=== PATIENT | female | born 1995 | race African-American/Black ===

== ENCOUNTER 2017-01-17 11:06 | Emergency (ER) | payer BC ==
[2017-01-17 11:10] VITALS: BP 131/82; PULSE 113; TEMP 98.5; BMI 34.0
[2017-01-17] MEDS ORDERED: SILVER SULFADIAZINE 1% TOP CREAM 50 GM JAR TP ONE ×2 (11:31→11:36)
--- NOTE | 2017-01-17 11:42 | PDOC ---
History of Present Illness - General Chief Complaint: Burn Stated Complaint: LT FINGER BURN, MOSQUITO BITE Time Seen by Provider: 01/17/17 11:13 - History of Present Illness Initial Comments: 01/17/17 12:01 CHIEF COMPLAINT: HISTORY OF PRESENT ILLNESS: 21 yo F presents to [facility] with R pelvic pain and burn to L pinky finger. Patient reports that she ___ but there's no blister or anything. She states her mother put neosporin on the burn after the incident. She reports that she had a UTI 2 weeks ago but was treated with antibiotics. She went to the DR, came back and now has pelvic pain to R side. She denies any recent sexual activity, is monogamous with one partner and had negative CT/GC at end of November . Returned from this week. PAST MEDICAL HISTORY: asthma FAMILY HISTORY: Denies SOCIAL HISTORY: Denies tobacco, alcohol, illicit drug use. SURGICAL HISTORY: Denies ALLERGIES: No known drug allergies REVIEW OF SYSTEMS General/Constitutional: Denies fever or chills. Denies weakness, weight change. HEENT: Denies change in vision. Denies ear pain or discharge. Denies sore throat. Cardiovascular: Denies chest pain or shortness of breath. Respiratory: Denies cough, wheezing, or hemoptysis. Gastrointestinal: Denies nausea, vomiting, diarrhea or constipation. Denies rectal bleeding. Genitourinary: Denies dysuria, frequency, or change in urination. Musculoskeletal: Denies joint or muscle swelling or pain. Denies neck or back pain. Skin and breasts: Denies rash or easy bruising. PHYSICAL EXAM General Appearance: Well-appearing, appropriately dressed. No apparent distress , no intoxication. HEENT: EOMI, PERRLA, normal ENT inspection, normal voice, TMs normal, pharynx normal. No conjunctival pallor. No photophobia, scleral icterus. Neck: Supple. Trachea midline. No tenderness, rigidity, carotid bruit, stridor , lymphadenopathy, or thyromegaly. Respiratory/Chest: Lungs CTAB. No shortness of breath, chest tenderness, respiratory distress, accessory muscle use. No crackles, rales, rhonchi, stridor , wheezing, dullness Cardiovascular: RRR. S1, S2. No JVD, murmur, bradycardia, tachycardia. Vascular Pulses: Dorsalis-Pedis (R): 2+, Dorsalis-Pedis (L): 2+ Gastrointestinal/Abdominal: Normal bowel sounds. Abdomen soft, non-distended. No tenderness or rebound tenderness. No organomegaly, pulsatile mass, guarding , hernia, hepatomegaly, splenomegaly. Lymphatic: No adenopathy, tenderness. Musculoskeletal/Extremities: Normal inspection. FROM of all extremities, normal capillary refill. Pelvis Stable. No CVA tenderness. No tenderness to extremities, pedal edema, swelling, erythema or deformity. Integumentary: Mild erythema to L pinky finger. No blister. Appropriate color , dry, warm. No cyanosis, erythema, jaundice or rash Neurologic: per assessment nurse II-XII intact. Fully oriented, alert. Appropriate mood/affect. Motor strength 5/5. No appreciable EOM palsy, facial droop or sensory deficit. 01/17/17 12:38 01/17/17 12:41 Past History - Past Medical History Allergies/Adverse Reactions: Allergies Allergy/AdvReac Type Severity Reaction Status Date / Time shellfish derived Allergy Itching Verified 01/17/17 11:11 Home Medications: Ambulatory Orders Ibuprofen [Motrin -] 600 mg PO TID #21 tablet 01/17/17 Silver Sulfadiazine [Silvadene] 1 applic TP BID #1 canister 01/17/17 Asthma: Yes - Psycho/Social/Smoking Cessation Hx Anxiety: No Suicidal Ideation: No Smoking History: Never smoked Hx Alcohol Use: No Drug/Substance Use Hx: No Substance Use Type: None *Physical Exam - Vital Signs Last Vital Signs Temp Pulse Resp BP Pulse Ox 98.5 F 113 H 20 131/82 98 01/17/17 11:06 01/17/17 11:06 01/17/17 11:06 01/17/17 11:06 01/17/17 11:06 Medical Decision Making - Medical Decision Making 01/17/17 12:41 21 yo F presents to [facility] with R pelvic pain and burn to L pinky finger. -Silvadene to R pink -UA, UC, Upreg Negative urine. TV U/S *DC/Admit/Observation/Transfer Diagnosis at time of Disposition: Ovarian cyst, Burn - Discharge Dispostion Disposition: HOME Condition at time of disposition: Stable Admit: No - Prescriptions Prescriptions: Ibuprofen [Motrin -] 600 mg PO TID #21 tablet Silver Sulfadiazine [Silvadene] 1 applic TP BID #1 canister - Referrals Referrals: Carlton Sharma MD [Primary Care Provider] - - Patient Instructions Printed Discharge Instructions: DI for Hale, DI for Ovarian Cyst Additional Instructions: Please take medications as prescribed. Follow up with your OBGYN regarding your ovarian cyst. If you experience any sudden, severe pain to one side, vaginal bleeding (more than one soaked pad an hour), or any new or worsening symptoms, please return to the ER.
[2017-01-17 11:56] LABS: URINE APPEARANCE CLEAR; URINE BILIRUBIN NEGATIVE (NEGATIVE); URINE BLOOD NEGATIVE (NEGATIVE); URINE COLOR YELLOW; URINE GLUCOSE (UA) NEGATIVE (NEGATIVE); URINE KETONE NEGATIVE (NEGATIVE); URINE LEUK ESTERASE NEGATIVE (NEGATIVE); URINE NITRITE NEGATIVE (NEGATIVE); URINE PROTEIN NEGATIVE (NEGATIVE); URINE UROBILINOGEN NEGATIVE E.U./dl (0.2-1.0)
== END 2017-01-17 13:37 | disposition home or self-care (01) ==
LOC: JERFT 11:06
PROC: 2W2KX4Z Dressing of Left Finger using Bandage (ICD-10-PCS; principal; 2017-01-17)
DX: N83.201 Unspecified ovarian cyst, right side (principal); T23.121A Burn of first degree of single right finger (nail) except thumb, initial encounter; X08.8XXA Exposure to other specified smoke, fire and flames, initial encounter; Y93.9 Activity, unspecified; Y99.8 Other external cause status
CPT/HCPCS: 76830-TC; 81003; 84703; 87086; 99281-25

== ENCOUNTER 2017-12-21 09:18 | Emergency (ER) | payer BC ==
[2017-12-21 09:31] VITALS: BP 109/75; PULSE 66; TEMP 98; BMI 37.3
--- NOTE | 2017-12-21 09:52 | PDOC ---
History of Present Illness - General Chief Complaint: Pain, Acute Stated Complaint: PAIN Time Seen by Provider: 12/21/17 09:45 History Source: Patient Exam Limitations: No Limitations - History of Present Illness Initial Comments: CHIEF COMPLAINT: 22 y/o afebrile female with PMH ovarian cysts and asthma c/o left sided pelvic pain this morning. HISTORY OF PRESENT ILLNESS: the patient admits the pain is constant but not severe enough she needs any pain medication. She states she had an IUD inserted 2 weeks ago and isn't sure if that is the cause of the pain or if she has another cyst. She denies f/c, n/v/d, Cp, SOB, back pain, hematuria, dysuria , abnormal vaginal bleeding, abnormal vaginal discharge. Vital signs on arrival are within normal limits. REVIEW OF SYSTEMS: GENERAL/CONSTITUTIONAL: No fever/chills. No weakness. No weight change. HEAD, EYES, EARS, NOSE AND THROAT: No change in vision. No ear pain or discharge. No sore throat. CARDIOVASCULAR: No chest pain or shortness of breath. RESPIRATORY: No cough, wheezing, or hemoptysis. GASTROINTESTINAL: +left pelvic pain. No nausea, vomiting, diarrhea. GENITOURINARY: No dysuria, frequency, or change in urination. MUSCULOSKELETAL: No joint or muscle swelling or pain. No neck or back pain. SKIN: No rash or easy bruising. NEUROLOGIC: No headache, vertigo, loss of consciousness, or loss of sensation. PHYSICAL EXAM: GENERAL: The patient is awake, alert, and fully oriented, in no acute distress. She is very well appearing and ambulatory. HEAD: Normal with no signs of trauma. ENT: Pupils equal, round and reactive to light, extraocular movements intact, sclera anicteric, conjunctiva clear. Neck supple. LUNGS: Clear to auscultation bilaterally. Normal excursion. No respiratory distress or use of accessory muscles. CV: RRR, S1/S2, no MRG. Cap refill < 2 sec. ABDOMEN: Soft, non-distended, non-tender even to deep palpation, no hepatomegaly or splenomegaly, no masses. No flank pain with palpation BACK: No CVA TTP b/l. VAGINAL: DEFERRED EXTREMITIES: Normal range of motion, no edema. NEUROLOGICAL: Normal speech, normal gait. CN II-XII grossly intact. SKIN: Warm, dry, normal turgor, no rashes or lesions noted. Past History - Past Medical History Allergies/Adverse Reactions: Allergies Allergy/AdvReac Type Severity Reaction Status Date / Time shellfish derived Allergy Itching Verified 12/21/17 09:29 Home Medications: Ambulatory Orders Ibuprofen [Motrin -] 600 mg PO TID #21 tablet 01/17/17 Silver Sulfadiazine [Silvadene] 1 applic TP BID #1 canister 01/17/17 Asthma: Yes COPD: No - Suicide/Smoking/Psychosocial Hx Smoking History: Never smoked Hx Alcohol Use: No Drug/Substance Use Hx: No Substance Use Type: None *Physical Exam - Vital Signs Last Vital Signs Temp Pulse Resp BP Pulse Ox 98 F 66 19 109/75 100 12/21/17 09:29 12/21/17 09:29 12/21/17 09:29 12/21/17 09:29 12/21/17 09:29 Medical Decision Making - Medical Decision Making A/P: 22 y/o afebrile female with left pelvic pain today. Plan is as follows: 1. UA/hcg 2. Ultrasound the patient is refusing pain medication at this time. hcg - negative UA negative for UTI transvaginal Ultrasound IMPRESSION: IUD in place. Partially ruptured cyst of left ovary. Follow up ultrasound recommended in 1-2 weeks. gave the patient the results. Suggested Motrin for pain if needed. instructed her to f/u with her [facility] within 2 weeks to have repeat ultrasound and return to the ER with any worsening or concerning symptoms. The patient verbalizes understanding of all instructions, has no further questions and is awaiting discharge. \ *DC/Admit/Observation/Transfer Diagnosis at time of Disposition: Pelvic pain Ovarian cyst Qualifiers: Laterality: left Qualified Code(s): N83.202 - Unspecified ovarian cyst, left side - Discharge Dispostion Disposition: HOME Condition at time of disposition: Good - Referrals Referrals: Carlton Sharma MD [Primary Care Provider] - - Patient Instructions Printed Discharge Instructions: DI for Ovarian Cyst Additional Instructions: Discharge Instructions: -Your IUD is in place -You have a partially ruptured ovarian cyst on the left side -You can take Motrin or Advil if needed for pain -Follow up with your [facility] in 1-2 weeks for repeat ultrasound -Return to the ER with any worsening or concerning symptoms. - Post Discharge Activity Forms/Work/School Notes: Back to Work, Back to School
[2017-12-21 11:03] LABS: URINE APPEARANCE CLEAR; URINE BILIRUBIN NEGATIVE (<2.0 mg/dL); URINE BLOOD NEGATIVE (NEGATIVE); URINE COLOR YELLOW; URINE GLUCOSE (UA) NEGATIVE (NEGATIVE); URINE KETONE NEGATIVE (NEGATIVE); URINE LEUK ESTERASE NEGATIVE (NEGATIVE); URINE NITRITE NEGATIVE (NEGATIVE); URINE PROTEIN NEGATIVE (NEGATIVE)
[2017-12-21 11:20] LABS: HCG,QUALITATIVE URINE NEGATIVE
== END 2017-12-21 13:36 | disposition home or self-care (01) ==
LOC: JER 09:18
DX: N83.202 Unspecified ovarian cyst, left side (principal); Z87.09 Personal history of other diseases of the respiratory system
CPT/HCPCS: 76830-TC; 81003; 84703; 87086; 99283-25

== ENCOUNTER 2018-04-19 09:00 | Emergency (ER) | payer BC ==
[2018-04-19 09:07] VITALS: BP 140/71; PULSE 84; TEMP 98.2; BMI 37.5
--- NOTE | 2018-04-19 09:25 | PDOC ---
History of Present Illness - General Chief Complaint: Vaginal Sxs Stated Complaint: VAGINAL PAIN Time Seen by Provider: 04/19/18 09:23 History Source: Patient Exam Limitations: No Limitations Past History - Travel Traveled outside of the country in the last 30 days: No Close contact w/someone who was outside of country & ill: No - Past Medical History Allergies/Adverse Reactions: Allergies Allergy/AdvReac Type Severity Reaction Status Date / Time shellfish derived Allergy Itching Verified 04/19/18 09:02 Home Medications: Ambulatory Orders Cephalexin Monohydrate [Keflex -] 500 mg PO BID #14 capsule 04/19/18 Fluconazole 150 mg PO DAILY #2 tablet 04/19/18 Asthma: Yes COPD: No - Surgical History Appendectomy: Yes - Reproductive History Cervical CA: No Dysfunctional Uterine Bleeding: No Ectopic : No Endometrial CA: No Polycystic Ovaries: Yes Tubal Ligation: No - Immunization History Immunization Up to Date: Yes - Suicide/Smoking/Psychosocial Hx Smoking History: Never smoked Hx Alcohol Use: No Drug/Substance Use Hx: No Substance Use Type: None Review of Systems - Review of Systems Able to Perform ROS?: Yes Comments:: 04/19/18 12:39 CONSTITUTIONAL: Absent: fever, chills, diaphoresis, generalized weakness, malaise, loss of appetite HEENT: Absent: rhinorrhea, nasal congestion, throat pain, throat swelling, difficulty swallowing, mouth swelling, ear pain, eye pain, visual Changes CARDIOVASCULAR: Absent: chest pain, loss of consciousness, palpitations, irregular heart rate, peripheral edema RESPIRATORY: Absent: cough, shortness of breath, dyspnea with exertion, orthopnea, wheezing, stridor, hemoptysis GASTROINTESTINAL: Absent: abdominal pain, abdominal distension, nausea, vomiting, diarrhea, constipation, melena, hematochezia GENITOURINARY: Absent: dysuria, frequency, urgency, hesitancy, hematuria, flank pain, genital pain MUSCULOSKELETAL: Absent: myalgia, arthralgia, joint swelling SKIN: Absent: rash, itching, pallor HEMATOLOGIC/IMMUNOLOGIC: Absent: easy bleeding, easy bruising, lymphadenopathy, frequent infections ENDOCRINE: Absent: unexplained weight gain, unexplained weight loss, heat intolerance, cold intolerance NEUROLOGIC: Absent: headache, focal weakness or paresthesias, dizziness, unsteady gait, seizure, mental status changes, bladder or bowel incontinence PSYCHIATRIC: Absent: anxiety, depression, suicidal or homicidal ideation, hallucinations. Is the patient limited Kazakh proficient: No *Physical Exam - Vital Signs Last Vital Signs Temp Pulse Resp BP Pulse Ox 98.2 F 84 18 140/71 100 04/19/18 09:03 04/19/18 09:03 04/19/18 09:03 04/19/18 09:03 04/19/18 09:03 - Physical Exam Comments: 04/19/18 12:40 GENERAL: Well developed, well nourished. Awake and alert. No acute distress. HEENT: Normocephalic, atraumatic. PERRLA, EOMI. No conjunctival pallor. Sclera are non- icteric. Moist mucous membranes. Oropharynx is clear. NECK: Supple. Full ROM. No JVD. Carotid pulses 2+ and symmetric, without bruits. No thyromegaly. No lymphadenopathy. CARDIOVASCULAR: Regular rate and rhythm. No murmurs, rubs, or gallops. Distal pulses are 2+ and symmetric. PULMONARY: No evidence of respiratory distress. Lungs clear to auscultation bilaterally. No wheezing, rales or rhonchi. ABDOMINAL: Soft. Non-tender. Non-distended. No rebound or guarding. No organomegaly. Normoactive bowel sounds. Pelvic: External genitalia normal without lesions.Vaginal vault is clear without blood or discharge. Cervix is long and closed. No cervical motion tenderness. Uterus is nontender and normal in size. Adnexa are nontender and without masses. MUSCULOSKELETAL Normal range of motion at all joints. No bony deformities or tenderness. No CVA tenderness. EXTREMITIES: No cyanosis. No clubbing. No edema. No calf tenderness. SKIN: Warm and dry. Normal capillary refill. No rashes. No jaundice. NEUROLOGICAL: Alert, awake, appropriate. Cranial nerves 2-12 intact. No deficits to light touch and temperature in face, upper extremities and lower extremities. No motor deficits in the in face, upper extremities and lower extremities. Normoreflexic in the upper and lower extremities. Normal speech. Toes are down- going bilaterally. Gait is normal without ataxia. PSYCHIATRIC: Cooperative. Good eye contact. Appropriate mood and affect. *DC/Admit/Observation/Transfer Diagnosis at time of Disposition: Kezia infection UTI (urinary tract infection) Qualifiers: Urinary tract infection type: acute cystitis Hematuria presence: with hematuria Qualified Code(s): N30.01 - Acute cystitis with hematuria - Discharge Dispostion Disposition: HOME Condition at time of disposition: Stable Decision to Admit order: No - Prescriptions Prescriptions: Cephalexin Monohydrate [Keflex -] 500 mg PO BID #14 capsule Fluconazole 150 mg PO DAILY #2 tablet - Referrals Referrals: Omar Olea MD [Staff Physician] - - Patient Instructions Printed Discharge Instructions: DI for Vaginal Yeast Infection, DI for Urinary Tract Infection (UTI) Additional Instructions: You have a urinary tract infection. This caused by bacteria. Please drink plenty of fluids. Take your antibiotics as prescribed. Finish the entire dose even if you feel better. You also have a yeast infection. Please take the fluconazole as prescribed. You may take Tylenol or Motrin as needed for pain. Follow the dosing instructions on the bottle. Please follow up with your primary care doctor this week. Return to the emergency department if you have fevers, chills, nausea, vomiting , back pain, or have any changes in your symptoms. - Post Discharge Activity Forms/Work/School Notes: Back to Work
[2018-04-19 10:36] LABS: HCG,QUALITATIVE URINE Negative
[2018-04-19 10:53] LABS: URINE APPEARANCE CLEAR; URINE BILIRUBIN NEGATIVE (<2.0 mg/dL); URINE COLOR YELLOW; URINE GLUCOSE (UA) NEGATIVE (NEGATIVE); URINE KETONE NEGATIVE (NEGATIVE); URINE NITRITE NEGATIVE (NEGATIVE); URINE PROTEIN NEGATIVE (NEGATIVE); URINE UROBILINOGEN NEGATIVE mg/dL (0.2-1.0)
[2018-04-19 10:55] LABS: URINE LEUK ESTERASE 2+ (NEGATIVE)
[2018-04-19 10:59] LABS: EPI CELLS RARE /HPF (FEW); URINE MUCUS MODERATE
== END 2018-04-19 11:16 | disposition home or self-care (01) ==
LOC: JERFT 09:00
DX: N30.01 Acute cystitis with hematuria (principal); B37.3 Candidiasis of vulva and vagina
CPT/HCPCS: 36415; 81003; 81015; 84703; 87070; 87086; 87186; 87205; 87491; 87591; 99281-25

== ENCOUNTER 2018-04-30 08:34 | Emergency (ER) | payer BC ==
[2018-04-30 08:43] VITALS: BMI 35.3
[2018-04-30] MEDS ORDERED: ALBUTEROL SO4 2.5/IPRATROPIUM 0.5 INH SOL 3 ML VIAL.NEB. NEB ONE ×3 (09:06→10:20)
--- NOTE | 2018-04-30 09:23 | PDOC ---
History of Present Illness - General Chief Complaint: Pain, Acute Stated Complaint: CHEST PAIN, SOB - History of Present Illness Initial Comments: 04/30/18 09:18 22 yo F PMH ovarian cysts, asthma, p/w SOB, wheezing, productive cough (white- yellow) x1wk. Pt took inhaler didnt help. Nebs helped. Denies fever, chills, abd pain, n/v/d, urinary sxs, travel, sick contacts, sore throat, body aches, joint pain. Has not required ICU admissions or intubations for asthma Last year was given steroids when she had viral cough PSH: adenoids removed 2008, appendectomy 2017 Meds: IUD, albuterol neb, albuterol INH, Flovent SH: marijuana. denies smoke etoh IV drugs Past History - Past Medical History Allergies/Adverse Reactions: Allergies Allergy/AdvReac Type Severity Reaction Status Date / Time shellfish derived Allergy Itching Verified 04/30/18 08:40 Home Medications: Ambulatory Orders Prednisone [Deltasone] 40 mg PO DAILY 5 Days #10 tablet 04/30/18 Asthma: Yes COPD: No - Surgical History Appendectomy: Yes - Reproductive History Cervical CA: No Dysfunctional Uterine Bleeding: No Ectopic : No Endometrial CA: No Polycystic Ovaries: Yes Tubal Ligation: No - Immunization History Immunization Up to Date: Yes - Suicide/Smoking/Psychosocial Hx Smoking History: Never smoked Hx Alcohol Use: No Drug/Substance Use Hx: No Substance Use Type: None Review of Systems - Review of Systems Constitutional: Yes: See HPI HEENTM: Yes: See HPI Respiratory: Yes: See HPI Cardiac (ROS): Yes: See HPI ABD/GI: Yes: See HPI : Yes: See HPI Musculoskeletal: Yes: See HPI Integumentary: Yes: See HPI Neurological: Yes: See HPI Endocrine: Yes: See HPI Hematologic/Lymphatic: Yes: See HPI *Physical Exam - Vital Signs Last Vital Signs Temp Pulse Resp BP Pulse Ox 98.8 F 90 18 114/67 98 04/30/18 08:37 04/30/18 08:37 04/30/18 08:37 04/30/18 08:37 04/30/18 08:59 - Physical Exam Comments: 04/30/18 09:24 General: Well-nourished, NAD HEENT: NCAT, MMM Neck: Supple, no lymphadenopathy Respiratory: mild wheeze cardio: RRR S1 S2 no m/r/g Abdomen: Soft, NTND +BS Extremities: radial 2+ b/l. Warm, dry, no cyanosis, edema, clubbing or calf tenderness Skin: intact. no rashes Neuro: Alert and oriented x3, nonfocal exam, grossly intact Psych: Normal mood and affect ED Treatment Course - Medications Given in the ED: ED Medications Discontinued Medications Generic Name Dose Route Start Last Admin Trade Name Gerry PRN Reason Stop Dose Admin Albuterol/Ipratropium 1 amp 04/30/18 09:06 04/30/18 09:11 Duoneb - NEB 04/30/18 09:07 1 amp ONCE ONE Administration Medical Decision Making - Medical Decision Making 04/30/18 09:25 22 yo F PMH ovarian cysts, asthma, p/w SOB, wheezing, productive cough (white- yellow) x1wk. vitals wnl. EKG was done in triage and showed NSR w/o ST-T wave changes Ddx: asthma exacerbation, viral URI, flu, PNA -Duoneb -prednisone 60 -preg test 04/30/18 09:55 Preg neg pt feeling better will prescribe prednisone Pt stable and ready for discharge *DC/Admit/Observation/Transfer Diagnosis at time of Disposition: Asthma attack Qualifiers: Asthma severity: mild Asthma persistence: intermittent Qualified Code(s): J45.21 - Mild intermittent asthma with (acute) exacerbation - Discharge Dispostion Disposition: HOME Condition at time of disposition: Stable Decision to Admit order: No - Prescriptions Prescriptions: Prednisone [Deltasone] 40 mg PO DAILY 5 Days #10 tablet - Referrals Referrals: Carlton Sharma MD [Primary Care Provider] - - Patient Instructions Printed Discharge Instructions: Asthma -- Adult, DI for Asthma -- Adult Additional Instructions: you came in for asthma exacerbation we gave you nebulizer and prednisone which helped your symptoms We will prescribe you prednisone Please take starting tomorrow on 05/01/18 prednisone 40mg (two 20mg tablets) once a day for 5 days Please continue your inhalers and nebulizers as needed Please follow up with your primary care physician within 1 week If you experience any worsening of wheezing, shortness of breath, fevers, chills , chest pain, please call 911 or come back to the ER - Post Discharge Activity
--- NOTE | 2018-04-30 09:28 | EKG ---
Test Reason : Blood Pressure : / mmHG Vent. Rate : 071 BPM Atrial Rate : 071 BPM P-R Int : 114 ms QRS Dur : 076 ms QT Int : 414 ms P-R-T Axes : 047 060 044 degrees QTc Int : 449 ms NORMAL SINUS RHYTHM NONSPECIFIC ST ABNORMALITY NO PREVIOUS ECGS AVAILABLE Confirmed by OLGA LIDIA PÉREZ MD ([id number]) on 04/30/2018 9:28:30 AM Referred By: Confirmed By:OLGA LIDIA PÉREZ MD
[2018-04-30] MEDS ORDERED: predniSONE 20 MG TABLET (UD) PO ONE (09:44)
[2018-04-30] MEDS ORDERED: predniSONE 20 MG TABLET (UD) ONE (09:50)
[2018-04-30 11:29] VITALS: BP 135/80; PULSE 87; TEMP 98.3
--- NOTE | 2018-04-30 11:34 | PDOC ---
Attending Attestation - Resident Resident Name: Shade Sloan - ED Attending Attestation I have performed the following: I have examined & evaluated the patient, The case was reviewed & discussed with the resident, I agree w/resident's findings & plan, Exceptions are as noted - HPI HPI: 04/30/18 11:31 22 yo F with h/o asthma, here with c/o coug, wheezing for few days. pt states usually tough time of year for her. no h/o icu or intubation. no f/c no n/v no leg swelling. did use albuterol at home. min relief. not currently on steroids. no other complaints. describes chest tighthness that she usually gets with asthma exacerbations, no other new chest pain. - Physicial Exam PE: 04/30/18 11:32 awake alert. lungs with bilateral wheezing. normal effort. no retractions no accessory muscle use. abd soft nt nd. ext wwp no edema. no calf tenderness. - Medical Decision Making 04/30/18 11:33 differential : asthma exacerbation bala. mild. plan nebs, steroids, ucg. pt feels improved following treatments, with nebs and steroids, will dc home ua negative. ekg performed in triage, normal. Heart Score/ECG Review #1 General ECG Interpretation: Sinus Rhythm, Normal Rate (71), Normal Intervals, No acute ischemic changes
== END 2018-04-30 11:29 | disposition home or self-care (01) ==
LOC: JER 08:34
PROC: 3E0F7GC Introduction of Other Therapeutic Substance into Respiratory Tract, Via Natural or Artificial Opening (ICD-10-PCS; principal; 2018-04-30)
DX: J45.21 Mild intermittent asthma with (acute) exacerbation (principal)
CPT/HCPCS: 84703; 93005; 93010; 99284-25; J7620

== ENCOUNTER 2018-10-24 11:31 | Emergency (ER) | payer BC ==
[2018-10-24 11:37] VITALS: BP 117/60; PULSE 72; TEMP 98.6; BMI 32.0
--- NOTE | 2018-10-24 11:47 | PDOC ---
History of Present Illness - General Chief Complaint: Pain Stated Complaint: PRESSURE LWR RT SIDE Time Seen by Provider: 10/24/18 11:44 - History of Present Illness Initial Comments: Evette Mooney is a 23yo woman with a PMH of asthma and ovarian cysts who presents reporting right sided pressure and pain since Thursday. She states that there is a feeling of squeezing pressure "in the right ovary" that worsens with urination. She knows that it is in the ovary because she had cysts before and had the same symtpoms. When she lays down, she also feels cramping pain in the same location. The pain/pressure are non-radiating. She has not tried any medication at home to help with the discomfort. Ms Mooney states that she has no other abdominal pain, no vaginal discharge, no vaginal bleeding, no change in bowel habits, no dysuria or unusual color or odor to her urine, no vomiting, and no fever/chills. Her LMP was on 09/29/18. She has an IUD in place and had no concerns for , and she states that she was recently checked for STD's and has no concern for infection. Past History - Past Medical History Allergies/Adverse Reactions: Allergies Allergy/AdvReac Type Severity Reaction Status Date / Time shellfish derived Allergy Itching Verified 10/24/18 11:38 Home Medications: Ambulatory Orders NK [No Known Home Medication] 10/24/18 Asthma: Yes COPD: No Other medical history: ovarian cysts - Surgical History Appendectomy: Yes - Reproductive History Cervical CA: No Dysfunctional Uterine Bleeding: No Ectopic : No Endometrial CA: No Polycystic Ovaries: Yes Tubal Ligation: No - Immunization History Immunization Up to Date: Yes - Suicide/Smoking/Psychosocial Hx Smoking History: Never smoked Hx Alcohol Use: No Drug/Substance Use Hx: No Substance Use Type: None Review of Systems - Review of Systems Comments:: General: No fevers, no chills, no weight or appetite change, no malaise HEENT: No changes in vision, no changes in hearing, no congestion, no sore throat CV: No chest pain, no palpitations, no LE edema Pulm: No SOB, no cough, no wheezing GI: No nausea or vomiting, no change in bowel habits, no melena : No frequency, no urgency, no dysuria Musc: No back pain, no joint swelling, no recent injury Skin: No rash, no lesions, no erythema Endo: No excessive thirst, no heat/cold intolerance Heme: No unusual bruising or bleeding, no swollen glands Neuro: No syncope, no numbness/tingling, no focal weakness Vasc: No claudication Psych: No recent change in mood, no SI or HI *Physical Exam - Vital Signs Last Vital Signs Temp Pulse Resp BP Pulse Ox 98.6 F 72 18 117/60 99 10/24/18 11:35 10/24/18 11:35 10/24/18 11:35 10/24/18 11:35 10/24/18 11:35 - Physical Exam Comments: General: Comfortable, no acute distress HEENT: PERRL, EOMI, MMM, voice normal Cards: RRR, no murmur appreciated Pulm: Comfortable on room air, clear to auscultation bilaterally Abd: Soft, nontender, nondistended : No CVA tenderness. Pelvic exam w/ normal external genitalia, no lesions, no vaginal discharge or bleeding, IUD strings visible at os, no cervical motion tenderness Ext: Atraumatic. No LE edema. ROM intact. Vasc: Extremities WWP. Skin: Normal color, no rashes or lesions Neuro: A&Ox3, CN grossly intact, normal speech, motor/sensory grossly intact and symmetric Psych: Mood appropriate to situation ED Treatment Course - LABORATORY CBC & Chemistry Diagram: 10/24/18 12:12 10/24/18 12:12 Medical Decision Making - Medical Decision Making 10/24/18 12:20 Evette Mooney is a 23yo woman with a PMH of ovarian cysts, asthma, s/p appendectomy who presents with non-radiating right pelvic squeezing pressure/ pain since Thursday without vaginal discharge, bleeding, or fever. She states that it feels the same as when she has had cysts previously. - Most likely due to known ovarian cysts. Need to also r/o ectopic or intrauterine . Less likely torsion given minimal TTP on exam. Less likely PID or cervicitis as there is no vaginal discharge, normal vaginal exam. Will r/o UTI, kidney stone. - UA, urine preg, CBC, CMP - Acetaminophen for pain - Will order transvaginal US after test results. 10/24/18 12:49 - Urine preg negative. Transvaginal US ordered - CBC, UA reviewed. No concerning abnormalities. Chemistry pending 10/24/18 13:37 - Chemistry unremarkable - US reviewed in ED. Appears to have 0.8 x 1.9cm right ovarian cyst. No free fluid or other abnormalities appreciated. Radiology read pending. - IV toradol ordered for discomfort 10/24/18 13:45 - Radiology read completed. Confirms simple R ovarian cyst. - Will d/c home with instructions for pain control and OB/gyne follow up. Discussed with Dr Flores. Katie Oliveros PGY1 *DC/Admit/Observation/Transfer Diagnosis at time of Disposition: Ovarian cyst, Pelvic pain - Discharge Dispostion Disposition: HOME Condition at time of disposition: Stable Decision to Admit order: No - Referrals Referrals: Jennifer Gaming DO [Primary Care Provider] - - Patient Instructions Printed Discharge Instructions: DI for Ovarian Cyst Additional Instructions: Discharge Instructions: You were seen in the ED for right pelvic pain. You were found to have a 0.8 x 1.9cm right ovarian cyst. There was no rupture or other abnormality. Home Care and Follow Up: - You may use over the counter medications as needed for pain at home. 650- 1000mg acetaminophen (Tylenol) or 600mg ibuprofen (Motrin or Advil) can be used every 6-8 hours. If needed for continued pain, these medications may be alternated every 3-4 hours. For example, you received ibuprofen at 9pm, so you may take acetaminophen at midnight, ibuprofen at 3am, acetaminophen at 6am. - Try using an ice pack for 20 minutes every hour or a heating pad for additional pain control. - Schedule an appointment to see your OB/gyne doctor (Dr Gaming) within the next week for follow up. - Seek immediate medical care if you have significant worsening of your symptoms , severe abdominal pain, unusual vaginal discharge or bleeding, fever to 101F, severe nausea/vomiting that prevents you from eating, or any other medical emergency. - Post Discharge Activity
[2018-10-24] MEDS ORDERED: ACETAMINOPHEN 325 MG TABLET (FP) PO ONE (12:20)
[2018-10-24] MEDS ORDERED: ACETAMINOPHEN 325 MG TABLET (FP) ONE (12:23)
[2018-10-24 12:45] LABS: PH,URINE 5.5 (5.0-8.0); URINE APPEARANCE CLEAR; URINE BILIRUBIN NEGATIVE (NEGATIVE); URINE COLOR YELLOW; URINE GLUCOSE (UA) NEGATIVE (NEGATIVE); URINE KETONE TRACE (NEGATIVE); URINE LEUK ESTERASE NEGATIVE (NEGATIVE); URINE NITRITE NEGATIVE (NEGATIVE); URINE PROTEIN NEGATIVE (NEGATIVE)
[2018-10-24 12:46] LABS: BASO % 0.9 % (0-2.0); EOS % 1.8 % (0-4.5); HEMATOCRIT 38.1 % (32.4-45.2); HEMOGLOBIN 12.7 GM/dL (10.7-15.3); LYMPH % 30.3 % (8-40); MCH 31.3 pg (25.7-33.7); MCHC 33.2 g/dl (32.0-36.0); MEAN CELL VOLUME 94.3 fl (80-96); MEAN PLT VOLUME 10.3 fl (7.5-11.1); MONO % 7.6 % (3.8-10.2); NEUT % 59.4 % (42.8-82.8); PLATELET COUNT 166 K/MM3 (134-434); RBC 4.04 M/mm3 (3.60-5.2); RDW 13.1 % (11.6-15.6); WHITE BLOOD COUNT 5.9 K/mm3 (4.0-10.0)
[2018-10-24 12:47] LABS: HCG,QUALITATIVE URINE Negative
--- NOTE | 2018-10-24 12:55 | PDOC ---
Attending Attestation - Resident Resident Name: Katie Oliveros - ED Attending Attestation I have performed the following: I have examined & evaluated the patient, The case was reviewed & discussed with the resident, I agree w/resident's findings & plan, Exceptions are as noted - HPI HPI: 10/24/18 12:55 The patient is a 23-year-old female, with a past medical history of asthma, appendectomy, and ovarian cysts, who presents to the ED with pain over her left ovary that began on Thursday10/22/18. She describes the pain as pressure-like in sensation, nonradiating, exacerbated when she urinates, and accompanied by nausea, but no vomiting. The pain is similar to the pain she experienced with ovarian cysts. Patient has an IUD. Denies any vaginal discharge or vaginal bleeding. No treatments tried for pain. The patient denies any dysuria, frequency, urgency, hesitancy, or hematuria. Denies any fevers, chills, diarrhea, or abdominal pain. Denies any chest pain or shortness of breath. Allergies: shellfish derived. Social History: None reported. Surgical History: Appendectomy PCP: Dr. Gaming - Physicial Exam PE: 10/24/18 13:09 agree with resident exam Abd: no ttp, distention, rebound or guarding : Normal ext genitalia. Normal os. No blood and discharge in vault. No CMT. No midline or L adnexal ttp. + R sided adnexal discomfort on palpation, - Medical Decision Making 10/24/18 13:11 23yo F hx appendectomy, ovarian cysts (resolved w/o intervention) presents to the ED with 3 days of dull R sided pelvic pain. Vitals wnl. Exam with R adnexal ttp. DDx includes ovarian cyst vs toa vs colitis vs ovarian torsion. Pt is very comfortable appearing, pain does not wax and wane, low likelihood torsion. Plan for labs, UPT, UA, TVUS, pain control. 10/24/18 13:53 TVUS with 2cm R dominant follicle/cyst Pain very well controlled with tylenol and toradol Pt tolerating PO, will f/u with her COMMUNICATIONS ATTENDANT within 1 week REturn precautions given I discussed the physical exam findings, ancillary test results and final diagnoses with the patient. I answered all of the patient's questions. The patient was satisfied with the care received and felt comfortable with the discharge plan and treatment plan. The patient will call their primary care physician within 24 hours to arrange follow-up and will return to the Emergency Department with any new, persistent or worsening symptoms.
[2018-10-24 12:59] LABS: ALBUMIN 3.5 g/dl (3.4-5.0); ALK PHOS 82 U/L (45-117); ANION GAP 6 MMOL/L (8-16); BILIRUBIN,TOTAL 0.3 mg/dL (0.2-1); BLOOD UREA NITROGEN 11 mg/dL (7-18); CALCIUM 8.2 mg/dL (8.5-10.1); CHLORIDE 107 mmol/L (98-107); CO2 27 mmol/L (21-32); CREATININE 0.8 mg/dL (0.55-1.3); GLUCOSE,RANDOM 85 mg/dL (74-106); POTASSIUM 4.1 mmol/L (3.5-5.1); SGOT/AST 18 U/L (15-37); SGPT/ALT 13 U/L (13-61); SODIUM 140 mmol/L (136-145); TOT PROT 6.6 g/dl (6.4-8.2)
[2018-10-24] MEDS ORDERED: KETOROLAC TROMETHAMINE 30 MG/1 ML VIAL IVPUSH ONE (13:36)
[2018-10-24] MEDS ORDERED: KETOROLAC TROMETHAMINE 30 MG/1 ML VIAL ONE (13:56)
== END 2018-10-24 14:05 | disposition home or self-care (01) ==
LOC: JER 11:31
PROC: 3E0333Z Introduction of Anti-inflammatory into Peripheral Vein, Percutaneous Approach (ICD-10-PCS; principal; 2018-10-24)
DX: N83.201 Unspecified ovarian cyst, right side (principal)
CPT/HCPCS: 36415; 76830-TC; 80053; 81003; 84703; 85025; 87086; 99282-25

== ENCOUNTER 2019-01-10 10:32 | Emergency (ER) | payer BC ==
[2019-01-10 10:58] VITALS: BP 123/60; PULSE 87; TEMP 98.6; BMI 32.0
--- NOTE | 2019-01-10 11:55 | PDOC ---
History of Present Illness - General Chief Complaint: Pain Stated Complaint: ABD PAIN Time Seen by Provider: 01/10/19 11:33 - History of Present Illness Initial Comments: 01/10/19 11:53 23-year-old female without comorbidities presents for evaluation of intermittent spotting morning nausea and lactating breasts over the last 2 weeks. She states the spotting has ceased as well as the lack patient from her breast she does have intermittent nausea. She has an IUD in place and believe she is . Past History - Past Medical History Allergies/Adverse Reactions: Allergies Allergy/AdvReac Type Severity Reaction Status Date / Time shellfish derived Allergy Itching Verified 01/10/19 10:49 Home Medications: Ambulatory Orders NK [No Known Home Medication] 10/24/18 Asthma: Yes COPD: No - Surgical History Appendectomy: Yes - Reproductive History Cervical CA: No Dysfunctional Uterine Bleeding: No Ectopic : No Endometrial CA: No Polycystic Ovaries: Yes Tubal Ligation: No - Immunization History Immunization Up to Date: Yes - Suicide/Smoking/Psychosocial Hx Smoking History: Never smoked Hx Alcohol Use: No Drug/Substance Use Hx: No Substance Use Type: None Review of Systems - Review of Systems Constitutional: No: Fever ABD/GI: Yes: Nausea *Physical Exam - Vital Signs Last Vital Signs Temp Pulse Resp BP Pulse Ox 98.6 F 87 18 123/60 100 01/10/19 10:50 01/10/19 10:50 01/10/19 10:50 01/10/19 10:50 01/10/19 10:50 - Physical Exam Comments: 01/10/19 11:55 HEAD: NC/AT EYES: Conjuntiva clear Ears: Canals and TM's normal NOSE: No d/c THROAT: Moist mucous membrances, oral pharanx clear, uvula midline NECK: Supple without adenopathy CARDIAC: S1 S2 LUNGS: CTA Full and Equal breath sounds ABDOMEN: Soft NT ND MS: Full ROM in all joints without edema NEUROLOGIC: No gross sensory or motor deficits, NVID SKIN: Normal color and temperature no lesions or rashes Medical Decision Making - Medical Decision Making 01/10/19 12:31 Negative , will have pt f/u with [facility] no emergent work up necessary at this time. Symptoms resolved over the last 2 weeks. *DC/Admit/Observation/Transfer Diagnosis at time of Disposition: Nausea - Discharge Dispostion Disposition: HOME Condition at time of disposition: Stable Decision to Admit order: No - Referrals Referrals: Carlton Sharma MD [Primary Care Provider] - Dedra Hoover MD [Staff Physician] - - Patient Instructions Additional Instructions: Your test was negative today. Return to the emergency room for worsening symptoms. Follow-up with gynecology for further evaluation and treatment options - Post Discharge Activity
== END 2019-01-10 12:50 | disposition home or self-care (01) ==
LOC: JERFT 10:32
DX: R11.0 Nausea (principal)
CPT/HCPCS: 84703; 99281-25

== ENCOUNTER 2019-05-05 14:37 | Emergency (ER) | payer BC ==
[2019-05-05 15:00] VITALS: BP 124/65; PULSE 94; TEMP 97.8; BMI 24.1
--- NOTE | 2019-05-05 15:16 | PDOC ---
Rapid Medical Evaluation Time Seen by Provider: 05/05/19 14:58 Medical Evaluation: Allergies Allergy/AdvReac Type Severity Reaction Status Date / Time shellfish derived Allergy Itching Verified 01/10/19 10:49 05/05/19 14:58 I have performed a brief in-person evaluation of this patient. The patient presents with a chief complaint of: hurt R arm "play fighting yesterday and hit arm against door" LMP 03/30, has IUD Pertinent physical exam findings: full ROM I have ordered the following: x-ray The patient will proceed to the ED for further evaluation. Discharge Disposition - Diagnosis Arm pain - Referrals - Patient Instructions - Post Discharge Activity
--- NOTE | 2019-05-05 15:31 | PDOC ---
History of Present Illness - General Chief Complaint: Pain, Acute Stated Complaint: RT ARM PAIN/INJURY Time Seen by Provider: 05/05/19 14:58 History Source: Patient Exam Limitations: No Limitations - History of Present Illness Initial Comments: 05/05/19 15:24 HISTORY OF PRESENT ILLNESS: This is a 23-year-old otherwise healthy woman who presents emergency department for evaluation of right upper arm pain status post direct trauma to the right upper arm. Patient reports she was pushing and shoving with a mart friend when she got pushed striking a metal door that was open on the thin side of the open door. Patient reports pain is increased over the day but is been able to move her arm since injury. Patient also reports to suprapubic pressure with voiding. No recent travel or sick contacts. PAST MEDICAL HISTORY: Denies past medical history SURGICAL HISTORY: Denies ALLERGIES: Shellfish REVIEW OF SYSTEMS General/Constitutional: Denies fever or chills. Denies weakness, weight change. HEENT: Denies change in vision. Denies ear pain or discharge. Denies sore throat. Cardiovascular: Denies chest pain or shortness of breath. Respiratory: Denies cough, wheezing, or hemoptysis. Gastrointestinal: Denies nausea, vomiting, diarrhea or constipation. Denies rectal bleeding. Genitourinary: Denies dysuria, frequency, or change in urination. Musculoskeletal: See HPI Skin and breasts: Denies rash or easy bruising. Neurologic: Denies headache, vertigo, loss of consciousness, or loss of sensation. Psychiatric: Denies depression or anxiety. Endocrine: Denies increased thirst. Denies abnormal weight change. Hematologic/Lymphatic: Denies anemia, easy bleeding, or history of blood clots. Allergic/Immunologic: Denies hives or skin allergy. Denies latex allergy. PHYSICAL EXAM General Appearance: Well-appearing, appropriately dressed. No apparent distress , no intoxication. Respiratory/Chest: Lungs CTAB. No shortness of breath, chest tenderness, respiratory distress, accessory muscle use. No crackles, rales, rhonchi, stridor , wheezing, dullness Cardiovascular: RRR. S1, S2. No JVD, murmur, bradycardia, tachycardia. Vascular Pulses: Dorsalis-Pedis (R): 2+, Dorsalis-Pedis (L): 2+ Gastrointestinal/Abdominal: Normal bowel sounds. Abdomen soft, non-distended. No tenderness or rebound tenderness. No organomegaly, pulsatile mass, guarding, hernia, hepatomegaly, splenomegaly. Lymphatic: No adenopathy, tenderness. Musculoskeletal/Extremities: Normal inspection. FROM of all extremities, normal capillary refill. Pelvis Stable. No CVA tenderness. No tenderness to extremities, pedal edema, swelling, erythema or deformity. Tender to palpation over the right triceps muscle. Integumentary: Appropriate color, dry, warm. No cyanosis, erythema, jaundice or rash Neurologic: mechanic general operational test II-XII intact. Fully oriented, alert. Appropriate mood/affect. Motor strength 5/5. No appreciable EOM palsy, facial droop or sensory deficit. Past History - Past Medical History Allergies/Adverse Reactions: Allergies Allergy/AdvReac Type Severity Reaction Status Date / Time shellfish derived Allergy Itching Verified 01/10/19 10:49 Home Medications: Ambulatory Orders NK [No Known Home Medication] 10/24/18 Asthma: Yes COPD: No - Surgical History Appendectomy: Yes - Reproductive History Cervical CA: No Dysfunctional Uterine Bleeding: No Ectopic : No Endometrial CA: No Polycystic Ovaries: Yes Tubal Ligation: No - Immunization History Immunization Up to Date: Yes - Psycho Social/Smoking Cessation Hx Smoking History: Never smoked Have you smoked in the past 12 months: No Information on smoking cessation initiated: No Hx Alcohol Use: No Drug/Substance Use Hx: No Substance Use Type: None *Physical Exam - Vital Signs Last Vital Signs Temp Pulse Resp BP Pulse Ox 97.8 F 94 H 18 124/65 100 05/05/19 14:58 05/05/19 14:58 05/05/19 14:58 05/05/19 14:58 05/05/19 14:58 Medical Decision Making - Medical Decision Making 05/05/19 15:29 A/P: 23-year-old woman with right arm pain and suprapubic tenderness X-ray per E as read by me: No acute fractures noted. Bone matrix undisturbed. urinalysis, urine , urine culture Reassess 05/05/19 16:36 Urinalysis is not suggestive of infection. I will discharge patient home to follow-up with her primary doctor for continued evaluation. I discussed the physical exam findings, ancillary test results and final diagnoses with the patient. I answered all of the patient's questions. The patient was satisfied with the care received and felt comfortable with the discharge plan and treatment plan. The patient will call their primary care physician within 24 hours to arrange follow-up and will return to the Emergency Department with any new, persistent or worsening symptoms. Discharge - Discharge Information Problems reviewed: Yes Clinical Impression/Diagnosis: Arm pain Qualifiers: Laterality: right Qualified Code(s): M79.601 - Pain in right arm Condition: Stable Disposition: HOME - Admission No - Follow up/Referral - Patient Discharge Instructions Additional Instructions: Take Tylenol or Motrin as needed for pain. Follow manufacturers instructions for appropriate dosage. Apply ice for 20 minutes and removed for at least 20 minutes before reapplying the ice. Return to emergency department for discoloration of the fingers, numbness or tingling to the fingers, worsening pain, or any other concerns. Thank you very much for choosing us to provide your emergent healthcare needs. - Post Discharge Activity
[2019-05-05 16:31] LABS: URINE APPEARANCE CLEAR; URINE BILIRUBIN NEGATIVE (NEGATIVE); URINE COLOR YELLOW; URINE GLUCOSE (UA) NEGATIVE (NEGATIVE); URINE KETONE TRACE (NEGATIVE); URINE LEUK ESTERASE NEGATIVE (NEGATIVE); URINE NITRITE NEGATIVE (NEGATIVE); URINE PROTEIN NEGATIVE (NEGATIVE)
== END 2019-05-05 16:39 | disposition home or self-care (01) ==
LOC: JERFT 14:37
DX: S49.81XA Other specified injuries of right shoulder and upper arm, initial encounter (principal); M79.601 Pain in right arm; W22.8XXA Striking against or struck by other objects, initial encounter; Y93.83 Activity, rough housing and horseplay; Y92.038 Other place in apartment as the place of occurrence of the external cause; Y99.8 Other external cause status; J45.909 Unspecified asthma, uncomplicated; Z91.013 Allergy to seafood
CPT/HCPCS: 73060-TC-RT-FY; 81003; 84703; 87086; 99282-25

== ENCOUNTER 2019-08-16 17:09 | Emergency (ER) | payer BC ==
[2019-08-16 17:45] VITALS: BP 113/59; PULSE 116; TEMP 97.8; BMI 25.7
--- NOTE | 2019-08-16 17:46 | PDOC ---
Rapid Medical Evaluation Chief Complaint: Cold Symptoms Time Seen by Provider: 08/16/19 17:44 Medical Evaluation: Allergies Allergy/AdvReac Type Severity Reaction Status Date / Time shellfish derived Allergy Itching Verified 08/16/19 17:42 Vital Signs Temp Pulse Resp BP Pulse Ox 97.8 F 116 H 16 113/59 L 99 08/16/19 17:42 08/16/19 17:42 08/16/19 17:42 08/16/19 17:42 08/16/19 17:42 08/16/19 17:45 I have performed a brief in-person evaluation of this patient. The patient presents with a chief complaint of: cough and congestion with midsternal CP from cough since today. BF tested positive for flu and she wants to make sure she doesnt have the flu Pertinent physical exam findings: afebrile I have ordered the following:deferred The patient will proceed to the ED for further evaluation. Discharge Disposition - Diagnosis URI (upper respiratory infection) Qualifiers: URI type: unspecified viral URI Qualified Code(s): J06.9 - Acute upper respiratory infection, unspecified - Discharge Dispostion Condition at time of disposition: Stable - Referrals - Patient Instructions - Post Discharge Activity
--- NOTE | 2019-08-16 19:06 | PDOC ---
History of Present Illness - General Chief Complaint: Cold Symptoms Stated Complaint: CHEST PAIN/SOB Time Seen by Provider: 08/16/19 17:44 - History of Present Illness Initial Comments: 08/16/19 19:05 24-year-old female with flu symptoms and a positive sick flu contacts at home. Past medical history of asthma Past History - Past Medical History Allergies/Adverse Reactions: Allergies Allergy/AdvReac Type Severity Reaction Status Date / Time shellfish derived Allergy Itching Verified 08/16/19 17:42 Home Medications: Ambulatory Orders Oseltamivir Phosphate [Tamiflu] 75 mg PO BID #10 capsule 08/16/19 Asthma: Yes COPD: No - Surgical History Appendectomy: Yes - Reproductive History Cervical CA: No Dysfunctional Uterine Bleeding: No Ectopic : No Endometrial CA: No Polycystic Ovaries: Yes Tubal Ligation: No - Immunization History Immunization Up to Date: Yes - Psycho Social/Smoking Cessation Hx Smoking History: Never smoked Have you smoked in the past 12 months: No Hx Alcohol Use: No Drug/Substance Use Hx: No Substance Use Type: None Review of Systems - Review of Systems Constitutional: Yes: Fever HEENTM: Yes: Nose Congestion Respiratory: Yes: Cough *Physical Exam - Vital Signs Last Vital Signs Temp Pulse Resp BP Pulse Ox 97.8 F 116 H 16 113/59 L 99 08/16/19 17:42 08/16/19 17:42 08/16/19 17:42 08/16/19 17:42 08/16/19 17:42 - Physical Exam 08/16/19 19:05 GENERAL: The patient is awake, alert, and fully oriented, in no acute distress. HEAD: Normal with no signs of trauma. EYES: sclera anicteric, conjunctiva clear. ENT: Ears normal tympanic membranes normal oropharynx clear uvula midline NECK: Normal range of motion LUNGS: Breath sounds equal, clear to auscultation bilaterally. No wheezes, and no crackles. HEART: S1 and S2 without murmur, rub or gallop. ABDOMEN: Soft, nontender, normoactive bowel sounds. No guarding, no rebound. No masses. EXTREMITIES: Normal range of motion, no edema. No clubbing or cyanosis. No cords, erythema, or tenderness. NEUROLOGICAL: Cranial nerves II through XII grossly intact. PSYCH: Normal mood, normal affect. SKIN: Warm, Dry, normal turgor, no rashes or lesions noted. Medical Decision Making - Medical Decision Making 08/16/19 19:05 We will treat for flu based on positive sick flu contact at home and symptoms starting today Discharge - Discharge Information Problems reviewed: Yes Clinical Impression/Diagnosis: URI (upper respiratory infection) Qualifiers: URI type: unspecified viral URI Qualified Code(s): J06.9 - Acute upper respiratory infection, unspecified Condition: Stable Disposition: HOME - Admission No - Additional Discharge Information Prescriptions: Oseltamivir Phosphate [Tamiflu] 75 mg PO BID #10 capsule - Follow up/Referral Referrals: Enriqueta Perez MD [Staff Physician] - - Patient Discharge Instructions Additional Instructions: Tylenol Motrin as directed for fever and body aches. Return to the emergency room for worsening symptoms and without fail follow-up with your primary care physician in 1 to 2 days for further evaluation and treatment options. Please take the Tamiflu as directed. - Post Discharge Activity
== END 2019-08-16 19:07 | disposition home or self-care (01) ==
LOC: JERFT 17:09
DX: J06.9 Acute upper respiratory infection, unspecified (principal); Z87.09 Personal history of other diseases of the respiratory system; Z91.013 Allergy to seafood
CPT/HCPCS: 99281-25

== ENCOUNTER 2019-08-22 13:05 | Emergency (ER) | payer BC ==
[2019-08-22 13:18] VITALS: BP 117/62; PULSE 68; BMI 36.1
[2019-08-22] MEDS ORDERED: DEXAMETHASONE LIQUID 0.5 MG/5 ML PO ONE (14:49)
[2019-08-22] MEDS ORDERED: ALBUTEROL SO4 2.5/IPRATROPIUM 0.5 INH SOL 3 ML VIAL.NEB. NEB ONE (14:56)
[2019-08-22] MEDS ORDERED: ALBUTEROL SO4 2.5/IPRATROPIUM 0.5 INH SOL 3 ML VIAL.NEB. NEB SCH (15:00)
[2019-08-22] MEDS ORDERED: DEXAMETHASONE SOD PHOSPHATE 10 MG/1 ML VIAL ONE (15:01)
--- NOTE | 2019-08-22 15:16 | PDOC ---
History of Present Illness - General Chief Complaint: Cold Symptoms Stated Complaint: CONGESTED/SOB Time Seen by Provider: 08/22/19 14:19 - History of Present Illness Initial Comments: 08/22/19 15:14 24-year-old female with a past medical history of asthma presents for flulike symptoms x4 days Past History - Past Medical History Allergies/Adverse Reactions: Allergies Allergy/AdvReac Type Severity Reaction Status Date / Time shellfish derived Allergy Itching Verified 08/22/19 13:18 Home Medications: Ambulatory Orders Oseltamivir Phosphate [Tamiflu] 75 mg PO BID #10 capsule 08/16/19 Azithromycin [Zithromax -] 250 mg PO UTDICT #6 tab 08/22/19 Guaifenesin Dm [Mucinex Dm -] 1 tab PO BID #60 tab.er.12h 08/22/19 Asthma: Yes COPD: No - Surgical History Appendectomy: Yes - Reproductive History Cervical CA: No Dysfunctional Uterine Bleeding: No Ectopic : No Endometrial CA: No Polycystic Ovaries: Yes Tubal Ligation: No - Immunization History Immunization Up to Date: Yes - Psycho Social/Smoking Cessation Hx Smoking History: Never smoked Have you smoked in the past 12 months: No Information on smoking cessation initiated: No Hx Alcohol Use: No Drug/Substance Use Hx: No Substance Use Type: None Review of Systems - Review of Systems Constitutional: No: Fever HEENTM: Yes: Nose Congestion Respiratory: Yes: Cough *Physical Exam - Vital Signs Last Vital Signs Temp Pulse Resp BP Pulse Ox 68 17 117/62 100 08/22/19 13:16 08/22/19 13:16 08/22/19 13:16 08/22/19 13:16 - Physical Exam 08/22/19 15:14 GENERAL: The patient is awake, alert, and fully oriented, in no acute distress. HEAD: Normal with no signs of trauma. EYES: sclera anicteric, conjunctiva clear. ENT: Ears normal tympanic membranes normal oropharynx clear uvula midline NECK: Normal range of motion LUNGS: Right basilar rhonchi and wheezing. HEART: S1 and S2 without murmur, rub or gallop. ABDOMEN: Soft, nontender, normoactive bowel sounds. No guarding, no rebound. No masses. EXTREMITIES: Normal range of motion, no edema. No clubbing or cyanosis. No cords, erythema, or tenderness. NEUROLOGICAL: Cranial nerves II through XII grossly intact. PSYCH: Normal mood, normal affect. SKIN: Warm, Dry, normal turgor, no rashes or lesions noted. ED Treatment Course - Medications Given in the ED: ED Medications Discontinued Medications Generic Name Dose Route Start Last Admin Trade Name Gerry PRN Reason Stop Dose Admin Dexamethasone 10 mg 08/22/19 14:49 08/22/19 15:03 Decadron Liquid - PO 08/22/19 14:50 10 mg ONCE ONE Administration Medical Decision Making - Medical Decision Making 08/22/19 15:15 Wheezing resolved after 1 treatment and Decadron will treat for bronchitis with Zithromax. Discharge - Discharge Information Problems reviewed: Yes Clinical Impression/Diagnosis: Asthmatic bronchitis Condition: Stable Disposition: HOME - Admission No - Follow up/Referral Referrals: Carlton Sharma MD [Primary Care Provider] - - Patient Discharge Instructions Additional Instructions: Please take the Zithromax and Mucinex as directed. Return to the emergency room for worsening symptoms. Tylenol and Motrin for fever and body aches should you require it. Without fail follow-up with your primary care physician in 2 to 3 days for further evaluation and treatment options. - Post Discharge Activity
== END 2019-08-22 15:35 | disposition home or self-care (01) ==
LOC: JERFT 13:05
PROC: 3E0F7GC Introduction of Other Therapeutic Substance into Respiratory Tract, Via Natural or Artificial Opening (ICD-10-PCS; principal; 2019-08-22)
DX: J45.998 Other asthma (principal)
CPT/HCPCS: 99281-25

== ENCOUNTER 2020-06-09 13:42 | Emergency (ER) | payer BC ==
[2020-06-09 13:52] VITALS: BMI 35.7
[2020-06-09] MEDS ORDERED: MAG HYDROX/AL HYDROX/SIMETH -MYLANTA- ORAL SUSPENSION PO ONE (14:17)
[2020-06-09] MEDS ORDERED: FAMOTIDINE 20 MG/50 ML IVPB 20 MG in PREMIX 50 IVPB ONE (14:17)
[2020-06-09] MEDS ORDERED: ONDANSETRON 4 MG/2 ML VIAL IVPB ONE (14:17)
[2020-06-09] MEDS ORDERED: SODIUM CHLORIDE 1,000 ML IV ONE ×2 (14:17→15:23)
[2020-06-09] MEDS ORDERED: MAG HYDROX/AL HYDROX/SIMETH 30 ML UNIT-DOSE CUP ONE (14:21)
[2020-06-09] MEDS ORDERED: FAMOTIDINE 20 MG/50 ML IVPB 20 MG/50 ML MG IVPB ONE (14:22)
[2020-06-09 14:41] LABS: HEMATOCRIT 43.3 % (32.4-45.2); HEMOGLOBIN 14.4 GM/dL (10.7-15.3); LYMPH % 14.6 % (8-40); MCH 31.3 pg (25.7-33.7); MCHC 33.3 g/dl (32.0-36.0); MEAN CELL VOLUME 93.9 fl (80-96); MEAN PLT VOLUME 10.1 fl (7.5-11.1); NEUT % 79.6 % (42.8-82.8); PLATELET COUNT 197 K/MM3 (134-434); RBC 4.61 M/mm3 (3.60-5.2); RDW 12.6 % (11.6-15.6); WHITE BLOOD COUNT 6.9 K/mm3 (4.0-10.0)
[2020-06-09 14:42] LABS: EOS % 0.1 % (0-4.5); MONO % 4.7 % (3.8-10.2)
[2020-06-09 14:47] LABS: HCG,QUALITATIVE URINE Negative
[2020-06-09 14:48] LABS: EPI CELLS 25 /uL (0-25.1); HYALINE CASTS 3 /uL (0-3.1); PH,URINE 5.5 (5.0-8.0); URINE APPEARANCE CLEAR; URINE BACTERIA 1609 /uL (0-1359); URINE BILIRUBIN NEGATIVE (NEGATIVE); URINE COLOR YELLOW; URINE GLUCOSE (UA) NEGATIVE (NEGATIVE); URINE KETONE 4+ (NEGATIVE); URINE LEUK ESTERASE NEGATIVE (NEGATIVE); URINE NITRITE NEGATIVE (NEGATIVE); URINE PROTEIN TRACE (NEGATIVE); URINE WBC 15 /uL (0-25.8)
[2020-06-09 15:08] LABS: POTASSIUM 3.6 mmol/L (3.5-5.1)
[2020-06-09 15:10] LABS: BLOOD UREA NITROGEN 14.5 mg/dL (7-18); CALCIUM 9.5 mg/dL (8.5-10.1)
[2020-06-09 15:11] LABS: ALBUMIN 4.2 g/dl (3.4-5.0)
[2020-06-09 15:15] LABS: BILIRUBIN,TOTAL 0.8 mg/dL (0.2-1); TOT PROT 7.6 g/dl (6.4-8.2)
[2020-06-09 15:30] LABS: URINE RBC 20.2 /uL (0-23.9)
[2020-06-09] MEDS ORDERED: PROCHLORPERAZINE INJECTION 10 MG/2 ML VIAL IVPB ONE (15:48)
[2020-06-09] MEDS ORDERED: PROCHLORPERAZINE INJECTION 10 MG/2 ML VIAL ONE (15:52)
[2020-06-09 16:57] VITALS: BP 110/68; PULSE 72; TEMP 98.2
== END 2020-06-09 16:57 | disposition home or self-care (01) ==
LOC: JER 13:42
PROC: 3E033NZ Introduction of Analgesics, Hypnotics, Sedatives into Peripheral Vein, Percutaneous Approach (ICD-10-PCS; principal; 2020-06-09)
PROC: 3E033GC Introduction of Other Therapeutic Substance into Peripheral Vein, Percutaneous Approach (ICD-10-PCS; 2020-06-09)
PROC: 3E0337Z Introduction of Electrolytic and Water Balance Substance into Peripheral Vein, Percutaneous Approach (ICD-10-PCS; 2020-06-09)
DX: R11.2 Nausea with vomiting, unspecified (principal)
CPT/HCPCS: 36415; 80053; 81003; 83690; 84703; 85025; 93005; 93010; 99285-25

== ENCOUNTER 2020-07-01 18:21 | Emergency (ER) | payer BC ==
[2020-07-01 18:29] VITALS: BP 123/70; PULSE 90; TEMP 97.5; BMI 35.3
[2020-07-01] MEDS ORDERED: SODIUM CHLORIDE 0.9% 500 ML INFUS.BAG IV ONE (19:13)
[2020-07-01] MEDS ORDERED: ACETAMINOPHEN 500 MG TABLET (FP) PO ONE (19:13)
[2020-07-01] MEDS ORDERED: ONDANSETRON 4 MG/2 ML VIAL IVPUSH ONE (19:13)
[2020-07-01] MEDS ORDERED: ONDANSETRON 4 MG/2 ML VIAL ONE (20:33)
[2020-07-01] MEDS ORDERED: ACETAMINOPHEN 325 MG TABLET (FP) ONE (20:33)
[2020-07-01 20:45] LABS: BASO % 1.1 % (0-2.0); EOS % 0.3 % (0-4.5); HEMOGLOBIN 12.8 GM/dL (10.7-15.3); LYMPH % 36.6 % (8-40); MCH 30.8 pg (25.7-33.7); MCHC 32.7 g/dl (32.0-36.0); MEAN CELL VOLUME 94.2 fl (80-96); MEAN PLT VOLUME 9.8 fl (7.5-11.1); MONO % 9.1 % (3.8-10.2); NEUT % 52.9 % (42.8-82.8); PLATELET COUNT 173 K/MM3 (134-434); RBC 4.14 M/mm3 (3.60-5.2); RDW 12.8 % (11.6-15.6); WHITE BLOOD COUNT 6.6 K/mm3 (4.0-10.0)
[2020-07-01 20:48] LABS: EPI CELLS >36 /uL (0-25.1); HYALINE CASTS 7 /uL (0-3.1); PH,URINE 5.5 (5.0-8.0); URINE APPEARANCE CLEAR; URINE BACTERIA 664 /uL (0-1359); URINE BILIRUBIN NEGATIVE (NEGATIVE); URINE COLOR YELLOW; URINE GLUCOSE (UA) NEGATIVE (NEGATIVE); URINE KETONE 2+ (NEGATIVE); URINE LEUK ESTERASE TRACE (NEGATIVE); URINE NITRITE NEGATIVE (NEGATIVE); URINE PROTEIN TRACE (NEGATIVE); URINE RBC 11 /uL (0-23.9); URINE WBC 27 /uL (0-25.8)
[2020-07-01 20:56] LABS: HCG,QUALITATIVE URINE Negative
[2020-07-01 21:05] LABS: POTASSIUM 3.5 mmol/L (3.5-5.1)
[2020-07-01 21:07] LABS: ALBUMIN 3.7 g/dl (3.4-5.0); BLOOD UREA NITROGEN 11.1 mg/dL (7-18); CALCIUM 8.5 mg/dL (8.5-10.1)
[2020-07-01 21:10] LABS: CREATININE 0.9 mg/dL (0.55-1.3)
[2020-07-01 21:12] LABS: BILIRUBIN,TOTAL 0.5 mg/dL (0.2-1); TOT PROT 6.7 g/dl (6.4-8.2)
[2020-07-01] MEDS ORDERED: CEPHALEXIN MONOHYDRATE 500 MG CAPSULE (UD) PO ONE (21:30)
[2020-07-01] MEDS ORDERED: CEPHALEXIN MONOHYDRATE 500 MG CAPSULE (UD) ONE (21:41)
== END 2020-07-01 21:45 | disposition home or self-care (01) ==
LOC: JER 18:21
PROC: 3E033GC Introduction of Other Therapeutic Substance into Peripheral Vein, Percutaneous Approach (ICD-10-PCS; principal; 2020-07-01)
DX: N30.01 Acute cystitis with hematuria (principal)
CPT/HCPCS: 36415; 76830-TC; 80053; 81003; 84703; 85025; 87086; 99284-25

== ENCOUNTER 2020-09-02 20:05 | Emergency (ER) | payer BC ==
[2020-09-02 20:14] VITALS: BP 111/67; PULSE 94; TEMP 98.8; BMI 33.2
[2020-09-02 21:27] LABS: EPI CELLS >36 /uL (0-25.1); HYALINE CASTS 6 /uL (0-3.1); PH,URINE 5.5 (5.0-8.0); URINE APPEARANCE CLOUDY; URINE BACTERIA 896 /uL (0-1359); URINE BILIRUBIN NEGATIVE (NEGATIVE); URINE COLOR YELLOW; URINE GLUCOSE (UA) NEGATIVE (NEGATIVE); URINE KETONE TRACE (NEGATIVE); URINE LEUK ESTERASE 1+ (NEGATIVE); URINE NITRITE NEGATIVE (NEGATIVE); URINE PROTEIN 1+ (NEGATIVE); URINE RBC 173 /uL (0-23.9); URINE WBC 139 /uL (0-25.8)
[2020-09-02] MEDS ORDERED: FLUCONAZOLE 150 MG TABLET PO ONE ×2 (21:35→22:04)
== END 2020-09-02 22:39 | disposition home or self-care (01) ==
LOC: JER 20:05
DX: B37.3 Candidiasis of vulva and vagina (principal)
CPT/HCPCS: 36415; 81003; 84703; 87086; 87186; 87491; 87591; 87661; 99284-25

== ENCOUNTER 2021-01-03 16:43 | Emergency (ER) | payer BC ==
[2021-01-03 17:03] VITALS: BP 114/79; PULSE 104; TEMP 98.8; BMI 37.5
[2021-01-03 19:11] LABS: BASO % 0.7 % (0-2.0); EOS % 0.3 % (0-4.5); HEMATOCRIT 39.4 % (32.4-45.2); HEMOGLOBIN 13.2 GM/dL (10.7-15.3); LYMPH % 15.5 % (8-40); MCH 31.2 pg (25.7-33.7); MCHC 33.5 g/dl (32.0-36.0); MEAN CELL VOLUME 93.1 fl (80-96); MEAN PLT VOLUME 9.7 fl (7.5-11.1); MONO % 6.4 % (3.8-10.2); NEUT % 77.1 % (42.8-82.8); PLATELET COUNT 163 10^3/uL (134-434); RBC 4.23 M/mm3 (3.60-5.2); RDW 12.8 % (11.6-15.6)
[2021-01-03 19:32] LABS: CALCIUM 9.3 mg/dL (8.5-10.1)
[2021-01-03 19:33] LABS: ALBUMIN 3.8 g/dl (3.4-5.0); BLOOD UREA NITROGEN 10.4 mg/dL (7-18)
[2021-01-03 19:36] LABS: CREATININE 0.8 mg/dL (0.55-1.3)
[2021-01-03 19:37] LABS: BILIRUBIN,TOTAL 0.9 mg/dL (0.2-1); TOT PROT 7.3 g/dl (6.4-8.2)
[2021-01-03 19:58] LABS: EPI CELLS 22 /uL (0-25.1); HCG,QUALITATIVE URINE Negative; HYALINE CASTS 6 /uL (0-3.1); PH,URINE 5.5 (5.0-8.0); URINE APPEARANCE CLEAR; URINE BILIRUBIN NEGATIVE (NEGATIVE); URINE COLOR YELLOW; URINE GLUCOSE (UA) NEGATIVE (NEGATIVE); URINE KETONE 1+ (NEGATIVE); URINE LEUK ESTERASE 1+ (NEGATIVE); URINE NITRITE POSITIVE (NEGATIVE); URINE PROTEIN TRACE (NEGATIVE); URINE RBC 19 /uL (0-23.9); URINE WBC 121 /uL (0-25.8)
[2021-01-03 20:05] LABS: URINE BACTERIA 753.2 /uL (0-1359)
== END 2021-01-03 20:49 | disposition home or self-care (01) ==
LOC: JER 16:43
DX: N30.00 Acute cystitis without hematuria (principal)
CPT/HCPCS: 36415; 76830-TC; 80053; 81003; 84703; 85025; 87086; 99284-25

== ENCOUNTER 2021-05-02 08:38 | Emergency (ER) | payer BC ==
[2021-05-02 08:50] VITALS: BP 150/65; PULSE 76; TEMP 98.1; BMI 37.0
== END 2021-05-02 10:03 | disposition home or self-care (01) ==
LOC: JERFT 08:38
DX: J01.10 Acute frontal sinusitis, unspecified (principal); Z11.52 Encounter for screening for COVID-19
CPT/HCPCS: 99283-25; C9803; U0003; U0005

== ENCOUNTER 2021-09-06 06:57 | Emergency (ER) | payer BC ==
[2021-09-06 07:10] VITALS: BP 112/69; PULSE 76; TEMP 98.2; BMI 32.1
[2021-09-06 09:37] LABS: EPI CELLS 15 /uL (0-25.1); HYALINE CASTS 1 /uL (0-3.1); PH,URINE 6.5 (5.0-8.0); URINE APPEARANCE CLOUDY; URINE BACTERIA 924 /uL (0-1359); URINE BILIRUBIN NEGATIVE (NEGATIVE); URINE COLOR YELLOW; URINE GLUCOSE (UA) NEGATIVE (NEGATIVE); URINE KETONE NEGATIVE (NEGATIVE); URINE LEUK ESTERASE 1+ (NEGATIVE); URINE NITRITE NEGATIVE (NEGATIVE); URINE PROTEIN NEGATIVE (NEGATIVE); URINE UROBILINOGEN 0.2 mg/dL (0.2-1.0); URINE WBC 178 /uL (0-25.8)
[2021-09-06 10:42] LABS: URINE RBC 39.2 /uL (0-23.9)
== END 2021-09-06 10:00 | disposition home or self-care (01) ==
LOC: JER 06:57
DX: R30.0 Dysuria (principal)
CPT/HCPCS: 36415; 81003; 84703; 87086; 87186; 87491; 87591; 99283-25

== ENCOUNTER 2021-12-02 07:00 | Emergency (ER) | payer BC ==
[2021-12-02 07:42] VITALS: BP 117/84; PULSE 73; TEMP 98.7; BMI 32.5
== END 2021-12-02 11:28 | disposition home or self-care (01) ==
LOC: JERFT 07:00 → JER 07:00 → JERFT 11:28
DX: U07.1 COVID-19 (principal)
CPT/HCPCS: 0241U-QW; 99283-25

== ENCOUNTER 2022-03-08 08:29 | Emergency (ER) | payer BC ==
[2022-03-08 08:49] VITALS: BP 106/54; PULSE 68; RESP 18; TEMP 98.2; BMI 32.9
== END 2022-03-08 09:00 | disposition left against medical advice (07) ==
LOC: JER 08:29
DX: J02.9 Acute pharyngitis, unspecified (principal)
CPT/HCPCS: 99281-25

== ENCOUNTER 2024-09-26 23:11 | Emergency (ER) | payer BC ==
[2024-09-26 23:16] VITALS: BP 121/68; PULSE 76; RESP 16; TEMP 98.3; BMI 37.0
[2024-09-27] MEDS ORDERED: KETOROLAC TROMETHAMINE 30 MG/1 ML VIAL ONE (00:01)
[2024-09-27] MEDS: KETOROLAC TROMETHAMINE 30 MG/1 ML VIAL IM ONE (00:05)
== END 2024-09-27 00:21 | disposition home or self-care (01) ==
LOC: JER 23:11
PROC: 3E0233Z Introduction of Anti-inflammatory into Muscle, Percutaneous Approach (ICD-10-PCS; principal; 2024-09-27)
DX: K08.89 Other specified disorders of teeth and supporting structures (principal); K02.9 Dental caries, unspecified
CPT/HCPCS: 96372; 99284-25

== ENCOUNTER 2025-02-18 12:28 | Emergency (ER) | payer OTHER, BC ==
[2025-02-18 12:34] VITALS: BP 132/72; PULSE 102; RESP 20; TEMP 98.2; BMI 41.2
[2025-02-18] MEDS ORDERED: IBUPROFEN 600 MG TABLET (FP) PO ONE (14:25)
[2025-02-18] MEDS: IBUPROFEN 600 MG TABLET (FP) PO ONE (14:29)
== END 2025-02-18 14:32 | disposition home or self-care (01) ==
LOC: JERFT 12:28
DX: S69.91XA Unspecified injury of right wrist, hand and finger(s), initial encounter (principal); X50.1XXA Overexertion from prolonged static or awkward postures, initial encounter
CPT/HCPCS: 73130-TC-RT-FY; 84703; 99284-25